=== PATIENT | male | born 1945 | race Caucasian/White ===

== ENCOUNTER 2019-08-04 09:38 | Day surgery (SDC) | payer MEDICARE, OTHER, SELFPAY ==
--- NOTE | 2019-08-04 | PATH_ITS ---
[facility] Accession Number: [id number] . 01 Material submitted: . PART A: ileo-cecal valve - EDGE OF ILEOCECAALVE PART B: body - POLYPS AT 80 . 02 Diagnosis: A. Edge of Ileocecal Valve: Portions of colorectal mucosa with prominent benign lymphoid aggregates; negative for dysplasia or malignancy. . B. Polyps at 80 cm, Biopsies: Portions of tubular adenoma x2. Multiple (approximately eight) portions of sessile serrated adenoma. MRV 08/05/2019 1014 Local . 02 Electronically signed: . Kristan Herrera MD, Pathologist NPI- [id number] . 01 Gross description: . Part A: EDGE OF ILEOCECAALVE: Received in formalin are 3 fragment(s) of waggoner, soft tissue measuring 0.3 x 0.2 x 0.2 cm to 0.3 x 0.2 x 0.2 cm submitted entirely in 1 cassette(s) Part B: POLYPS AT 80: Received in formalin are multiple fragment(s) of waggoner, soft tissue measuring 1.0 x 0.9 x 0.1 cm in aggregate submitted entirely in 1 cassette(s) /QBJ 08/04/2019 2154 Local . 02 Pathologist provided ICD-10: K63.5, Z12.11 . 02 CPT . 831732, 308612 Performed at: 01 [facility] [address], [place], [place] [id number] MD Eric Ware MD Phone: [phone] Performed at: 02 [facility] [address] , [place], [place] [id number] MD Jenny Cortes MD Phone: [phone]
[2019-08-04 10:12] VITALS: BP 161/88; PULSE 59; RESP 16; TEMP 36; O2SAT 95
[2019-08-04 10:14] VITALS: BMI 26.1
[2019-08-04] MEDS: SODIUM CHLORIDE 0.9% 1,000 ML 84 ML IV (11:00)
--- NOTE | 2019-08-04 11:15 | PM.HP.1 ---
History of Present Illness History of Present Illness Date Patient Seen: 08/04/19 Time Patient Seen: 11:10 Chief complaint: [id number] Narrative: The patient is a gentleman here for screening colonoscopy. His last exam was about 7 years ago. He believes he had polyps at his past exam. Patient History Medical History Asthma (Acute) Concussion (Acute) Detached retina, bilateral (Acute) Skin cancer (Acute) Surgical History History of colonoscopy (Acute) S/P TURP (transurethral resection of prostate) (Acute) Family & Social History Social History: household members spouse Meds Home Medications and Allergies Home Medications Medication Instructions Recorded Confirmed Type Aristada DAILY 08/04/19 History dorzolamide-timolol 1 drp EYE-BOTH BID 08/04/19 08/04/19 History latanoprost 0.005 % EYE-LEFT DAILY 08/04/19 08/04/19 History rosuvastatin 5 mg PO BEDTIME 08/04/19 08/04/19 History Allergies Allergy/AdvReac Type Severity Reaction Status Date / Time bee sting Allergy Severe Faintness Uncoded 08/04/19 10:01 and airway constriction Review of Systems Review of Systems ROS Unobtainable: All systems reviewed & are unremarkable except as noted in HPI and below Exam Vital Signs (past 8 hours): - 08/04/19 10:12 Temperature 96.8 F L Pulse Rate 59 L Respiratory Rate 16 Blood Pressure 161/88 H Pulse Oximetry 95 Oxygen Delivery Method Room Air Narrative Exam Narrative: Pleasant cooperative patient no apparent distress. Lungs are clear to auscultation. No rales or rhonchi. Heart regular rate and rhythm no murmur gallop. Abdomen is soft nontender without mass. No obvious hernias. Patient is alert and oriented x3. Assessment & Plan Assessment & Plan narrative: The patient for a screening colonoscopy. I have discussed the procedure with them. Risks of bleeding, perforation which would necessitate major operation, failure to find remove all lesions, the potential tattoo were all discussed. All questions were answered. They wished to proceed.
--- NOTE | 2019-08-04 11:17 | PM.PREOP ---
Pre-operative Note Interval Note History & Physical reviewed/Exam performed by Physician: Yes Changes to H&P: No ASA Class (for procedural sedation): I
--- NOTE | 2019-08-04 11:58 | PM.OP.ENDO ---
Operative Date/Time/Diagnoses Date of procedure: 08/04/19 Time of procedure: 11:58 Pre-op diagnosis: Screening exam. Last exam 7 years ago. History of polyps. Post-op diagnosis: same (Diverticulosis. Multiple small polyps.) Procedure & Clinicians Study performed: Colonoscopy with cold biopsy and cauterization of a lesion. Same procedure as scheduled: Yes Indications: Screening Surgeon: Bubba Tai Procedure Notes SCOAP/Timeout: Performed Procedure in detail: The patient was placed in the left lateral decubitus position and underwent IV sedation directed by the surgeon consisting of fentanyl and Versed. Digital exam was remarkable for mildly enlarged soft prostate. The scope was inserted and advanced through the rectum into the sigmoid, descending, transverse, and ascending colon. Diverticulosis of the sigmoid colon was noted.. The cecum was reached identified by the ileocecal valve and the appendiceal opening. The ileocecal valve was not cannulated. On its surface at 1 edge was a small irregularity which I biopsied and removed in case it was a polyp. Elsewhere in the colon there was another small lesion which I biopsied and removed. The scope was gradually brought out. Polyps were found at 80 cm from the anal verge. There were 2 lesions. One was quite small in the other was a larger. I initially attempted to snare it but could not get a whole purchase on it. Therefore use biopsy forceps and repeatedly biopsied almost the whole lesion. What little residual there was I cauterized.. The scope was slowly brought through the remainder of the colon and ultimately was retroflexed in the rectum. The appearance was remarkable for some prominent veins but no columns I would consider consistent with enlarged hemorrhoids. The scope was removed and the patient tolerated the procedure well. The prep was good Scope withdrawal time: 11 minutes(excludes bx time) Sedation minutes: 35 Findings: diverticulosis (Sigmoid) and polyp (In the cecum and at 80 cm from the anal verge) Specimen(s): other (Polyps) Complications: none Post-procedure Recommendations: Colonscopy in 5 years Follow up: as needed Disposition: PACU
[2019-08-04] MEDS: MIDAZOLAM 5 MG/5 ML VIAL IV (12:01)
[2019-08-04] MEDS: fentaNYL 250 MCG/5 ML INJ IV (12:01)
[2019-08-04 12:03] VITALS: BP 100/73; PULSE 56; RESP 12; TEMP 36.7; O2SAT 95
[2019-08-04 12:08] VITALS: BP 107/66; PULSE 80; RESP 14; O2SAT 95
[2019-08-04 12:14] VITALS: BP 109/76; PULSE 61; RESP 14; TEMP 36.3; O2SAT 95
[2019-08-04 12:35] VITALS: BP 116/75; PULSE 60; RESP 14; TEMP 36.3; O2SAT 96
--- NOTE | 2019-08-04 13:37 | SUR.PHASEII ---
Jc, attempted to call twice, left voicemails. [facility] and she is [facility]. Tolerating PO well, to waiting area with volunteer to wait for her arrival.
== END 2019-08-04 12:45 | disposition home or self-care (01) ==
PROVIDERS: PCP Family Medicine; Visit Provider Specialist
PROC: 0DJD8ZZ Inspection of Lower Intestinal Tract, Via Natural or Artificial Opening Endoscopic (ICD-10-PCS; CPT 45378; principal; 2019-08-04 10:45)
DX: Z86.010 Personal history of colon polyps (principal); J45.909 Unspecified asthma, uncomplicated; K57.30 Diverticulosis of large intestine without perforation or abscess without bleeding; D12.0 Benign neoplasm of cecum; K63.5 Polyp of colon
CPT/HCPCS: 45380; 99152; 99153; J2250; J3010